=== PATIENT | male | born 1995 | race Caucasian/White ===

== ENCOUNTER 2020-04-26 15:15 | Emergency (ER) | payer OTHER ==
[~2020-04-26] VITALS: Ht 188 cm; Wt 118.5 kg
--- NOTE | 2020-04-26 15:36 | NUR ---
Pt here for light resp distress and productive cough that has not resolved. Has had a negative flu/covid/strep test. Pt was given abx for bronchitis but those have not helped as well. Pt has had astham since 4 years old. Pt resting in bed. HUGON.
[2020-04-26] MEDS ORDERED: ALBUTEROL/IPRATROPIUM 2.5MG/0.5MG, 3 ML ONE ×2 (15:48→15:50)
--- NOTE | 2020-04-26 15:52 | NUR ---
Gavin RT to bedside to perform RT treatment adn xray completed.
[2020-04-26] MEDS ORDERED: ALBUTEROL/IPRATROPIUM 2.5MG/0.5MG, 3 ML NPPB ONE (16:00)
--- NOTE | 2020-04-26 16:14 | NUR ---
ORION CROWE AT BEDSIDE FOR RECHECK/EXPLANATION OF RESULTS. PT AO X 4. SKIN PWD. RESP EVEN AND UNLABORED. PT ABLE TO SPEAK IN FULL 7-10 WORD SENTENCES W/O DIFFICULTY. NO ACTIVE COUGH NOTED BY RN AT THIS TIME. PT ON CONT BP AND SPO2 MONITORS. CALL LIGHT WITHIN REACH. WILL CONT TO MONITOR PT.
[2020-04-26 16:44] VITALS: BP 145/75
== END 2020-04-26 16:46 | disposition home or self-care (01) ==
LOC: ED 16:25
DX: J45.41 Moderate persistent asthma with (acute) exacerbation (principal); J20.8 Acute bronchitis due to other specified organisms; R00.0 Tachycardia, unspecified
CPT/HCPCS: 71045; 93005; 94640; 99283; J7512